=== PATIENT | male | born 1985 | race Caucasian/White ===

== ENCOUNTER → 2018-06-04 | Outpatient (CLI) | payer OTHER ==
--- NOTE | 2018-06-04 10:54 | EST ---
EXERCISE STRESS DATE OF SERVICE: 06/04/2018 AGE: 33 SEX: Male HT: 68" WT: 215 pounds PROTOCOL: Cardiolite Giovanni STAGE: II DURATION OF EXERCISE: 8 minutes HEART RATE REST: 81 BLOOD PRESSURE REST: 142/62 MAXIMUM HEART RATE ACHIEVED: 166 MAXIMUM BLOOD PRESSURE: 185/94 85% MPHR: 160 100% MPHR: 188 METS: 9.7 INDICATIONS: Chest pain. CLINICAL INFORMATION: STRESS DATA: Pretesting physical examination showed a heart rate of 81, pressure is 142/62 mmHg. Baseline EKG showed sinus mechanism. The patient exercised on the treadmill according to Giovanni protocol for a total of 8 minutes and achieved 9.7 METs. Max heart rate was 166, which is about 88% of maximum predicted heart rate. Maximum blood pressure was 142, 1 study was 185/44 mmHg. Clinically the patient did not have any symptoms of chest pain or discomfort during the testing or in recovery and the EKG did not show any significant ST or T-wave abnormalities concerning for ischemia. CONCLUSIONS: 1. Excellent exercise tolerance. 2. Normal EKG in response to exercise. 3. Please follow up on the Cardiolite portion on a separate report from radiology department. MMODL / IJN: [id number] /
--- NOTE | 2018-06-04 12:33 | NM ---
EXAMINATION TYPE: NM stress cardiolite complete DATE OF EXAM: 06/04/2018 COMPARISON: NONE HISTORY: Hypertension, chest pain TECHNIQUE: After the intravenous administration of 10.45 mCi Tc 99m Sestamibi - Rest images obtained 45 minutes post injection. The patient exercised using a NESS protocol and 1 minute prior to peak exercise was injected with 26.2 mCi Tc 99m Sestamibi - Stress images obtained 15 minutes post inject ion. FINDINGS: Targeted heart rate was achieved during performance of the study. Review of stress and rest SPECT mikey ges demonstrates no distinct perfusion abnormality. Gated analysis shows normal wall motion with an estimated left ventricular ejection fraction of 56 %. IMPRESSION: No scintigraphic evidence for reversible ischemia
== END | disposition home or self-care (01) ==
LOC: RADNMMAIN 07:46
PROVIDERS: ATTEND Family Medicine
DX: I10 Essential (primary) hypertension (principal); R07.9 Chest pain, unspecified
CPT/HCPCS: 93017; 78452; A9500

== ENCOUNTER 2018-08-09 17:00 | Emergency (ER) | payer OTHER ==
[2018-08-09 17:12] VITALS: BP 143/75; PULSE 114; RESP 20; TEMP 98.2
[2018-08-09] MEDS ORDERED: ORPHENADRINE 30 MG/ML 2 ML VIAL IM STA (18:10)
[2018-08-09] MEDS ORDERED: KETOROLAC 30 MG/ML 1 ML VIAL IM STA (18:10)
[2018-08-09] MEDS ORDERED: MORPHINE SULFATE 4 MG/ML SYRINGE IM STA (18:10)
[2018-08-09] MEDS ORDERED: ACET/COD 300 MG/30 MG STARTER PACK 6 TAB BTL PO STA (19:19)
--- NOTE | 2018-08-09 19:19 | ED ---
Back Pain HPI - General Chief Complaint: Back Pain/Injury Stated Complaint: BACK PAIN Time Seen by Provider: 08/09/18 17:29 Source: patient Limitations: no limitations - History of Present Illness Initial Comments: 33-year-old male patient presents the emergency department today for evaluation of pain to the right low back. Patient states that he was bending over to grab something out of his car when he had sudden onset of pain to the right low back that radiated down the posterior right leg to his foot. Patient states that this occurred around 1:30 this afternoon. Patient states that the pain seems to be worsening. He denies taking anything for pain or discomfort. He denies any numbness or tingling to the extremities. Denies any saddle anesthesia or loss of bowel or bladder control. Patient states he has had low back pain in the past but never has had this radiating pain. Patient denies any headache, neck pain, chest pain, shortness of breath, dizziness, weakness, abdominal pain , nausea, vomiting, or difficulties with bowel movements or urination. - Related Data Previous Rx's Medication Instructions Recorded Cyclobenzaprine [Flexeril] 10 mg PO TID #15 tab 08/09/18 Ibuprofen [Motrin] 600 mg PO Q8HR PRN #30 tab 08/09/18 predniSONE 50 mg PO DAILY #5 tablet 08/09/18 Allergies Allergy/AdvReac Type Severity Reaction Status Date / Time No Known Allergies Allergy Verified 08/09/18 17:12 Review of Systems ROS Statement: Those systems with pertinent positive or pertinent negative responses have been documented in the HPI. ROS Other: All systems not noted in ROS Statement are negative. Past Medical History Past Medical History: Hypertension History of Any Multi-Drug Resistant Organisms: None Reported Past Surgical History: No Surgical Hx Reported Past Psychological History: No Psychological Hx Reported Smoking Status: Never smoker Past Alcohol Use History: Occasional Past Drug Use History: None Reported General Exam Limitations: no limitations General appearance: alert, in no apparent distress, other (This is a well- developed, well-nourished adult male patient in no acute distress. Vital signs upon presentation are temperature 98.2F, pulse 114, respirations 20, blood pressure 143/75, pulse ox 100% on room air.) Eye exam: Present: normal appearance, PERRL, EOMI. Absent: scleral icterus, conjunctival injection, periorbital swelling ENT exam: Present: normal exam, normal oropharynx, mucous membranes moist Respiratory exam: Present: normal lung sounds bilaterally. Absent: respiratory distress, wheezes, rales, rhonchi, stridor Cardiovascular Exam: Present: regular rate, normal rhythm, normal heart sounds. Absent: systolic murmur, diastolic murmur, rubs, gallop, clicks GI/Abdominal exam: Present: soft, normal bowel sounds. Absent: distended, tenderness, guarding, rebound, rigid Extremities exam: Present: normal inspection, full ROM, normal capillary refill , other (Skin to the lower extremities is pink, warm, and dry. Cap refills less than 3 seconds. Pedal and posttibial pulses are 2+ and equal bilaterally.) . Absent: tenderness, pedal edema, joint swelling, calf tenderness Back exam: Present: normal inspection, paraspinal tenderness (Right lumbar paraspinal tenderness). Absent: vertebral tenderness Neurological exam: Present: alert, oriented X3, CN II-XII intact, other ( Strength to the lower extremities is 5/5.) Psychiatric exam: Present: normal affect, normal mood Skin exam: Present: warm, dry, intact, normal color. Absent: rash Course Vital Signs 08/09/18 17:09 Temperature 98.2 F Pulse Rate 114 H Respiratory 20 Rate Blood Pressure 143/75 O2 Sat by Pulse 100 Oximetry Medical Decision Making - Medical Decision Making 33-year-old male patient presented to the emergency department today for evaluation of increased low back pain with radiation down the right leg. Physical examination was unremarkable. Patient was neurovascularly intact. Strength in lower extremities was 5/5. Patient's symptoms consistent with sciatic back pain. I did give intramuscular anti-inflammatory, pain medicine, and muscle relaxer in the department. Upon reevaluation patient symptoms have improved somewhat. He is able to ambulate. We will treat patient's pain with anti-inflammatory, steroids, and muscle relaxer. He is instructed to follow-up with his primary care physician for possible referral to orthopedics. Return parameters were discussed in detail. He verbalizes understanding and agrees with this plan. Disposition Clinical Impression: Acute low back pain, Sciatica Disposition: HOME SELF-CARE Condition: Good Instructions: Sciatica (ED), Acute Low Back Pain (ED), Lower Back Exercises (ED ) Additional Instructions: Apply ice to the low back for the first 24 hours and switch to warm moist he application. Apply this 20 minutes at a time at least 4 times daily. Take medications as directed. Perform gentle range of motion exercises once medication taken. Follow-up with your primary care physician for recheck and for possible referral to orthopedics if necessary. Return to the emergency department immediately for any new, worsening, or concerning symptoms. Prescriptions: Cyclobenzaprine [Flexeril] 10 mg PO TID #15 tab Ibuprofen [Motrin] 600 mg PO Q8HR PRN #30 tab PRN Reason: Pain predniSONE 50 mg PO DAILY #5 tablet Is patient prescribed a controlled substance at d/c from ED?: No Referrals: Shahbaz Colbert Jr, [Primary Care Provider] - 1-2 days Time of Disposition: 19:18
== END 2018-08-09 19:42 | disposition home or self-care (01) ==
LOC: EC 17:00
DX: M54.40 Lumbago with sciatica, unspecified side (principal)
CPT/HCPCS: 99283; 96372 ×3; J2270; J2360; J1885

== ENCOUNTER → 2018-09-07 | Outpatient (CLI) | payer OTHER ==
[2018-09-07 17:28] LABS: ALT 106 U/L (10-49); AST 65 U/L (14-35); Alkaline Phosphatase 59 U/L (41-126); Bilirubin, Conjugated <0.20 mg/dL (0.20-0.40); Cholesterol 160 mg/dL (0-200); Globulin 2.3 g/dL (2.1-3.7); Total Bilirubin 0.3 mg/dL (0.2-1.2); Total Protein 6.9 g/dL (6.2-8.2)
== END | disposition home or self-care (01) ==
LOC: LABWHC1 08:58
PROVIDERS: ATTEND Internal Medicine Cardiovascular Disease
DX: I10 Essential (primary) hypertension (principal); R00.0 Tachycardia, unspecified; R07.2 Precordial pain; R06.02 Shortness of breath; E66.09 Other obesity due to excess calories; Z68.33 Body mass index [BMI] 33.0-33.9, adult
CPT/HCPCS: 36415; 80061; 80076

== ENCOUNTER → 2018-09-07 | Outpatient (CLI) | payer OTHER ==
--- NOTE | 2018-09-07 14:00 | CT ---
EXAMINATION TYPE: CT abdomen pelvis wo con DATE OF EXAM: 09/07/2018 COMPARISON: None HISTORY: Hematuria CT DLP: 892.10 mGycm Automated exposure control for dose reduction was used. TECHNIQUE: Helical acquisition of images was performed from the lung bases through the pelvis. FINDINGS: LUNG BASES: No significant abnormality is appreciated. LIVER/GB: Hepatic parenchyma is diffusely hypoattenuated in comparison to that of the spleen, most co mmonly seen in hepatic steatosis. This finding limits evaluation for hepatic masses. No gross evidenc e of hepatic mass is seen. No intrahepatic biliary ductal dilatation. No cholelithiasis PANCREAS: No significant abnormality is seen. SPLEEN: No significant abnormality is seen. No splenomegaly. ADRENALS: No significant abnormality is seen. No nodularity or thickening. KIDNEYS: No hydronephrosis or nephrolithiasis is seen. Kidneys appear symmetric. FREE AIR: No free air is visualized REPRODUCTIVE ORGANS: No significant abnormality is seen URINARY BLADDER: No significant abnormality is seen. ADENOPATHY: Within the limitations of lack of intravenous contrast there are no greater than 1 cm sh ort axis lymph node in the abdomen or pelvis. OSSEOUS STRUCTURES: No significant abnormality is seen. BOWEL: Few scattered descending and sigmoid colonic diverticula are seen without pericolonic fat str anding. Appendix is air-filled and within normal limits of size. No dilated large or small bowel. OTHER: Small fat filled periumbilical hernia is present IMPRESSION: 1. NO HYDRONEPHROSIS OR NEPHROLITHIASIS. IF THERE IS FURTHER CLINICAL CONCERN CT UROGRAM COULD BE PER FORMED. 2. HEPATIC STEATOSIS APPEARING MILD IN DEGREE. 3. FEW COLONIC DIVERTICULA WITHOUT EVIDENCE OF ACUTE DIVERTICULITIS.
== END | disposition home or self-care (01) ==
LOC: RADCTMAIN 08:21
PROVIDERS: ATTEND Family Medicine
DX: R31.9 Hematuria, unspecified (principal)
CPT/HCPCS: 74176

== ENCOUNTER → 2019-08-24 | Outpatient (CLI) | payer OTHER ==
--- NOTE | 2019-08-24 13:37 | CT ---
EXAMINATION TYPE: CT sinus wo con DATE OF EXAM: 08/24/2019 COMPARISON: None HISTORY: sinusitis CT DLP: 605.9 mGycm CONTRAST: 0 mL of Isovue 300 Technique: The paranasal sinuses are examined in the axial plane at 2 mm thick sections. Reconstruct ed images in the coronal plane were obtained. Findings: There is dental amalgam scatter artifact The maxillary sinuses are clear. The ethmoid air cells are clear. The sphenoid sinuses are clear. The frontal sinuses are clear. The septum is evaluated. There is septal deviation to the left. The ostiomeatal units are patent. IMPRESSIONS: 1. Left septal deviation
== END | disposition home or self-care (01) ==
LOC: RADCTMAIN 11:17
PROVIDERS: ATTEND Otolaryngology
DX: J34.2 Deviated nasal septum (principal); J32.9 Chronic sinusitis, unspecified
CPT/HCPCS: 70486

== ENCOUNTER → 2019-09-13 | Outpatient (CLI) | payer OTHER ==
[~2019-09-13] MED LIST: SODIUM CHLORIDE 0.9% 500 ML 500 ML in EMPTY BAG 1 BAG IV PRN
[2019-09-13 09:47] VITALS: TEMP 98.5
[2019-09-13 10:10] LABS: HCT 48.3 % (39.0-53.0); HGB 16.6 gm/dL (13.0-17.5); MCH 34.4 pg (25.0-35.0); MCHC 34.4 g/dL (31.0-37.0); Mean Platelet Volume 7.1; Platelet Count 260 k/uL (150-450); RBC 4.83 m/uL (4.30-5.90); RDW 12.3 % (11.5-15.5); WBC 7.1 k/uL (3.8-10.6)
[2019-09-13 10:44] VITALS: BP 108/57; PULSE 87; RESP 16
[2019-09-14 21:50] LABS: Eosinophils # (M) 0.07 k/uL (0-0.7); Lymphocytes # (M) 1.14 k/uL (1.0-4.8); Monocytes # (M) 1.07 k/uL (0-1.0); Neutrophils # (M) 4.83 k/uL (1.3-7.7); Neutrophils % (M) 68 %; Nucleated Red Blood Cells 0 /100 WBC (0-0); Total Cells Counted 100
== END | disposition home or self-care (01) ==
LOC: PROCWHC3 08:58
PROVIDERS: ATTEND Family Medicine
DX: D45 Polycythemia vera (principal)
CPT/HCPCS: 36415; 85027; 99195

== ENCOUNTER 2019-12-28 09:45 | Inpatient (IN) | payer OTHER ==
[2019-12-28] MEDS ORDERED: MORPHINE SULFATE 4 MG/ML SYRINGE IV STA (10:08)
[2019-12-28] MEDS ORDERED: ASPIRIN 81 MG PO STA (10:08)
[2019-12-28] MEDS ORDERED: NITROGLYCERIN SL TABS 0.4 MG TAB SUBLINGUAL STA (10:08)
[2019-12-28] MEDS ORDERED: LABETALOL 5 MG/ML VIAL MDV IVP STA ×2 (10:19)
--- NOTE | 2019-12-28 10:20 | ED ---
Chest Pain HPI - General Chief Complaint: Chest Pain Stated Complaint: Chest pain Time Seen by Provider: 12/28/19 10:08 Source: patient Mode of arrival: wheelchair Limitations: no limitations - History of Present Illness Initial Comments: 33-year-old male presented for chief complaint of chest pain, patient states his chest pain for the past 2 days it comes and goes he states is sharp in nature. Patient states that it is in the center the chest near the bottom. He states it stopped with abdominal pain. Patient states he has had some nausea and episodes of vomiting. Patient denies any shortness of breath. He denies leg swelling. Patient denies history of hyperlipidemia, he states he previously was diagnosed with hypertension however has not been taking his medications. Patient states he did eat a marijuana brownie over the weekend denies any other drug use denies cocaine use. Patient denies IV drug use. Patient denies any hemoptysis, leg swelling, neck pain, jaw pain. Patient denies cough, URI symptoms, fevers. The pain resumed again this morning he thought he best he presents emergency department for further evaluation. Patient states the pain is decreasing upon history taking in comparison with this AM. Denies any ripping tearing back pain or history of aneurysm. Remaining review of system negative. Patient is a smoker. Denies history of ACS. Denies family history of CAD. - Related Data Home Medications Medication Instructions Recorded Confirmed Losartan [Cozaar] 25 mg PO DAILY 09/13/19 12/28/19 Aspirin EC [Ecotrin Low Dose] 81 mg PO DAILY 12/28/19 12/28/19 Potassium Citrate [Urocit-K] 5 meq PO DAILY 12/28/19 12/28/19 Allergies Allergy/AdvReac Type Severity Reaction Status Date / Time No Known Allergies Allergy Verified 12/28/19 11:05 Review of Systems ROS Statement: Those systems with pertinent positive or pertinent negative responses have been documented in the HPI. ROS Other: All systems not noted in ROS Statement are negative. EKG Findings - EKG Comments: EKG Findings:: Ventricular rate 114 bpm, NV interval 116 ms, QRS confucianism 74 ms, QT/QTC 338/465 ms. This is a sinus tachycardia. There is no ST elevation or depression noted. Past Medical History Past Medical History: Hypertension History of Any Multi-Drug Resistant Organisms: None Reported Past Surgical History: No Surgical Hx Reported Past Psychological History: No Psychological Hx Reported Smoking Status: Never smoker - Past Family History Mother Family Medical History: Hypertension grandfather Additional Family Medical History / Comment(s): lung cancer General Exam - General Exam Comments Initial Comments: General: The patient is awake and alert, in no distress Eye: +3 mm pupils are equal, round and reactive to light, extra-ocular movements are intact. No nystagmus. There is normal conjunctiva bilaterally. No signs of icterus. Ears, nose, mouth and throat: There are moist mucous membranes and no oral lesions. Neck: The neck is supple, there is no tenderness or JVD. Cardiovascular: There is a regular rate and rhythm. No murmur, rub or gallop is appreciated. Respiratory: Lungs are clear to auscultation, respirations are non-labored, breath sounds are equal. No wheezes, stridor, rales, or rhonchi. Gastrointestinal: Soft, non-distended, mild tenderness to palation of the epigastric portion of the abdomen without masses or organomegaly noted. There is no rebound or guarding present. Musculoskeletal: Normal ROM, no tenderness. Strength 5/5. Sensation intact. Radial and DP pulses equal bilaterally 2+. Neurological: A&O x 3. CN II-XII intact grossly, There are no obvious motor or sensory deficits. Coordination appears grossly intact. Speech is normal. bilateral hand tremors. Skin: Skin is warm and dry and no rashes or lesions are noted. Psychiatric: Cooperative, appropriate mood & affect, normal judgment. Limitations: no limitations Course Vital Signs 12/28/19 12/28/19 12/28/19 09:49 10:14 10:32 Temperature 98.2 F Pulse Rate 132 H 126 H Pulse Rate [ 125 H Tree Faller ] Respiratory 20 18 Rate Blood Pressure 157/130 O2 Sat by Pulse 98 97 Oximetry 12/28/19 12/28/19 12/28/19 11:00 11:25 11:33 Temperature Pulse Rate 120 H 107 H Pulse Rate [ Tree Faller ] Respiratory 18 18 Rate Blood Pressure 155/110 140/117 127/92 O2 Sat by Pulse 97 97 Oximetry 12/28/19 12/28/19 12/28/19 14:21 15:36 16:25 Temperature 98.4 F Pulse Rate 89 98 Pulse Rate [ Tree Faller ] Respiratory 18 18 18 Rate Blood Pressure 143/105 141/96 136/79 O2 Sat by Pulse 100 100 Oximetry Chest Pain MDM - MDM 34-year-old male presenting for chest pain appears to be in the lower substernal area/epigastric region. Patient was found to be in acute liver failure with acute elevation of AST ALT as well as INR. Patient had mild elevation of ammonia. Patient hepatitis A negative remaining Test panel pending. Patient was found to have multiple substance abuse he admits to ETOH abuse. No rectal bleeding. Patient was placed on withdrawal protocol. Patient's chest pain resolved in the emergency department. Patient had been using cocaine although he initially denied this. Labetolol was not given however it was initially ordered secondary to suspicion for drug use. Patient initial troponin (-) Patient has no current symptoms. Nodule near pancreas discussed. Discussed case with Dr. Hall who is agreeable to admission--GI on consult. Patient agreeable to admission. Disposition Clinical Impression: Liver failure, Drug abuse, Chest pain, Pancreatic abnormality, Elevated INR, Hypomagnesemia Disposition: ADMITTED IP TO THIS HOSP Condition: Serious Is patient prescribed a controlled substance at d/c from ED?: No Time of Disposition: 14:09 Decision to Admit Reason: Admit from EC Decision Date: 12/28/19 Decision Time: 14:09
[2019-12-28 10:33] LABS: Basophils % (A) 0 %; Eosinophils # (A) 0.2 k/uL (0-0.7); Eosinophils % (A) 3 %; HCT 53.3 % (39.0-53.0); HGB 17.5 gm/dL (13.0-17.5); Lymphocytes # (A) 0.8 k/uL (1.0-4.8); Lymphocytes % (A) 10 %; MCH 33.9 pg (25.0-35.0); MCHC 32.8 g/dL (31.0-37.0); MCV 103.2 fL (80.0-100.0); Macrocytosis Slight; Mean Platelet Volume 10.2; Monocytes # (A) 0.5 k/uL (0-1.0); Monocytes % (A) 6 %; Neutrophils # (A) 6.7 k/uL (1.3-7.7); Neutrophils % (A) 80 %; Platelet Count 133 k/uL (150-450); RBC 5.16 m/uL (4.30-5.90); RDW 12.4 % (11.5-15.5); WBC 8.4 k/uL (3.8-10.6)
[2019-12-28] MEDS ORDERED: LORazepam 2 MG/ML INJ IV STA ×2 (10:33→18:34)
[2019-12-28 10:43] LABS: ALT 72 U/L (4-49); AST 297 U/L (17-59); African American GFR (CKD) >90 (>60 ml/min/1.73 sqM); Albumin 4.8 g/dL (3.5-5.0); Alkaline Phosphatase 190 U/L (38-126); Anion Gap 16 mmol/L; Blood Urea Nitrogen 9 mg/dL (9-20); Calcium 9.9 mg/dL (8.4-10.2); Carbon Dioxide 22 mmol/L (22-30); Chloride 100 mmol/L (98-107); Glucose 123 mg/dL (74-99); Magnesium 1.4 mg/dL (1.6-2.3); Non-African American GFR(CKD) >90 (>60 ml/min/1.73 sqM); Sodium 138 mmol/L (137-145); Total Bilirubin 3.9 mg/dL (0.2-1.3); Total Protein 9.6 g/dL (6.3-8.2)
[2019-12-28 10:44] LABS: Potassium 4.3 mmol/L (3.5-5.1)
[2019-12-28 10:56] LABS: INR 1.9 (<1.2); Partial Thromboplastin Time 22.5 sec (22.0-30.0); Prothrombin Time 18.2 sec (9.0-12.0)
[2019-12-28] MEDS ORDERED: MAGNESIUM SULFATE-D5W PMX 1 GM in DEXTROSE/WATER 1 100ML.BAG IVPB ONE (10:58)
--- NOTE | 2019-12-28 11:05 | XR ---
EXAMINATION TYPE: XR chest 2V DATE OF EXAM: 12/28/2019 COMPARISON: NONE TECHNIQUE: PA and lateral views submitted. HISTORY: Chest pain FINDINGS: The lungs are clear and there is no pneumothorax, pleural effusion, or focal pneumonia. Heart size normal. No overt failure. IMPRESSION: 1. No acute process.
[2019-12-28] MEDS ORDERED: LORazepam 2 MG/ML INJ IV PRN ×2 (11:13)
[2019-12-28] MEDS ORDERED: THIAMINE 100 MG/ML 2 ML VIAL IM STA (11:13)
--- NOTE | 2019-12-28 11:31 | CT ---
EXAMINATION TYPE: CT angio thor/abd pel aorta DATE OF EXAM: 12/28/2019 COMPARISON: CT abdomen and pelvis September 07, 2018 HISTORY: chest pain, hypertension, 42 pound wt loss in [address] DLP: 1454.1 mGycm. Automated Exposure Control for Dose Reduction was Utilized. CONTRAST: CTA scan of the thorax, abdomen and pelvis is performed without oral and without and with IV Contrast , patient injected with 100 mL of Isovue 370. Dissection protocol with 3-D reconstructive images crea armida on an independent workstation and reviewed. FINDINGS: Vascular: Central pulmonary arteries well opacified. Normal 3 vessel origin from the aortic arch. No rmal origin celiac artery and SMA, bilateral single renal arteries and PEREZ. Patent iliac vessels bila terally. Patent femoral vessels in the bilateral region. No significant plaque or stenosis. No aneury sm. No linear hypodensity to suggest dissection. Proximal Coronary vessels grossly unremarkable. Phoebe nant right coronary vessel seen filling PDA. LUNGS: The lungs are grossly clear, there is no concerning parenchymal mass or nodule identified. T here is no pleural effusion or pneumothorax seen. The tracheobronchial tree is patent. MEDIASTINUM: There are no greater than 1 cm hilar or mediastinal lymph nodes. Few prominent but subce ntimeter right paratracheal lymph nodes image 25. No pericardial effusion is seen. LIVER/GB: Liver markedly hypodense consistent with diffuse fatty infiltration. Liver size upper limit s of normal with prominent right hepatic lobe. PANCREAS: No significant abnormality is seen. SPLEEN: Roughly 1 cm splenule near pancreatic tail axial image 104 ADRENALS: No significant abnormality is seen. KIDNEYS: No significant abnormality is seen. BOWEL: Stomach poorly distended and thus suboptimally evaluated. No suspicious small or large bowel d ilatation. GENITAL ORGANS: No gross abnormality seen. LYMPH NODES: No greater than 1cm abdominal or pelvic lymph nodes are appreciated. OSSEOUS STRUCTURES: No significant abnormality is seen. OTHER: No significant additional abnormality is seen. IMPRESSION: No aortic aneurysm or dissection. No suspicious mass or adenopathy. No significant renal artery plaque or stenosis. Diffuse fatty infiltration of liver redemonstrated otherwise unremarkable study.
[2019-12-28 11:38] LABS: Appearance,Urine Clear (Clear); Bacteria,Urine Rare /hpf; Bilirubin,Urine 1+ (Negative); Blood,Urine Trace (Negative); Color,Urine Light Brown; Glucose,Urine (UA) Negative (Negative); Ketones,Urine Trace (Negative); Leukocyte Esterase,Urine Negative (Negative); Mucus,Urine Occasional /hpf; Nitrite,Urine Negative (Negative); PH, Urine 8.5 (5.0-8.0); Protein,Urine 2+ (Negative); RBC,Urine 9 /hpf (0-5); Squamous Epithelial Cell,Urine <1 /hpf (0-4); Urobilinogen,Urine >12.0 mg/dL (<2.0); WBC,Urine 2 /hpf (0-5)
[2019-12-28 11:53] LABS: Amphetamine Screen,Urine Detected (NotDetected); Benzodiazepines Screen,Urine Detected (NotDetected); Cocaine Screen,Urine Detected (NotDetected); Methadone Screen, Urine Not Detected (NotDetected); Opiate Screen,Urine Detected (NotDetected); Phencyclidine Screen,Urine Not Detected (NotDetected); Tricyclic Antidepressant,Urine Not Detected (NotDetected); Urn Cannabinoid Scrn Detected (NotDetected)
[2019-12-28 11:54] LABS: Barbiturate Screen,Urine Not Detected (NotDetected); Oxycodone Screen, Urine Not Detected (NotDetected)
[2019-12-28 12:08] LABS: Specific Gravity,Urine >1.050 (1.001-1.035)
--- NOTE | 2019-12-28 12:35 | US ---
EXAMINATION TYPE: US abdomen limited DATE OF EXAM: 12/28/2019 COMPARISON: NONE CLINICAL HISTORY: epigastric pain. Pain EXAM MEASUREMENTS: Liver Length: 21.2 cm Gallbladder Wall: .3 cm CBD: 0.3 cm Right Kidney: 1.2 x 4.1 x 4.8 cm Pancreas: Obscured by bowel gas Liver: Increased attenuation hepatomegally 21 cm Gallbladder: wnl Evidence for sonographic Tejada's sign: No CBD: wnl Right Kidney: wnl IMPRESSION: 1. Hepatomegaly correlate for hepatitis, hepatic steatosis or diffuse hepatocellular disease.
[2019-12-28 13:12] LABS: Acetaminophen <10.0 ug/mL; Alcohol <10 mg/dL
[2019-12-28 13:48] LABS: Hepatitis A Antibody IgM NEGATIVE
[2019-12-28] MEDS ORDERED: NALOXONE 0.4 MG/ML 1 ML VIAL IV PRN ×2 (14:10→17:17)
[2019-12-28] MEDS ORDERED: SODIUM CHLORIDE 0.9% 1,000 ML IV SCH (14:15)
[2019-12-28] MEDS ORDERED: hydrALAZINE HCL 20 MG/ML 1 ML VIAL IVP STA (14:48)
[2019-12-28] MEDS ORDERED: ONDANSETRON 4 MG/2 ML VIAL IVP PRN (17:17)
[2019-12-28] MEDS ORDERED: MELATONIN 3 MG TABLET PO PRN (17:17)
[2019-12-28] MEDS ORDERED: traMADol 50 MG TAB PO PRN (17:17)
[2019-12-28] MEDS ORDERED: MORPHINE SULFATE 2 MG/ML SYRINGE IV PRN (17:17)
--- NOTE | 2019-12-28 17:35 | P.HPIM ---
History of Present Illness H&P Date: 12/28/19 Chief Complaint: chest pain Patient is a 34 yo CM with a hx of He reports chest pain on and off for several months. Saw a newspaper clipper 1 year ago, had a stress test was negative. Last night he was having pain all evening it was sub Xiphoid with radiation to left and right side of the chest at times. Comes and Goes. Occurs at anytime throughout the day but most commonly when laying down at night. Last multiple hours at a time. Feels like heart burn at times but medications not helping. No shrotness of breath. Tired more often then prior. No numbness in the arms or the jaw. Last episode of vomiting was 1 weeks ago, gagging and puking. intermittent dizziness, + diaphoretic, intermittent palpitations check pulse at home and can be upwards of 120 beats per minutes. Feels hungry and eats small amount of food and then feels full, he does report that he has been having diarrhea X 3 days. Feels like he needs to chew for a angel time but nothing gets stuck when actually swallowing. Had TCH candy and it increased appetitie. Lost 42 lbs in 6 months. Urine yellow to orange. No acholic stools. He reports intermittent blood in stools and coffee ground emesis. Stopped taking lopressor, losartan, and a water pill. 1 tattoo obtained in a home. No camping, no swimming, no recent travel, no recent visitors from over seas. Increased stress at home. He was seeing Dr. Colbert but is planning on changing physicians. 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 No significant issues noted on an osteopathic structural exam other than those noted in the History and Physical/Consult. Vitals: Vital Signs Temp Pulse Pulse Resp BP Pulse Ox 12/28/19 15:36 18 141/96 12/28/19 14:21 89 18 143/105 100 12/28/19 11:33 127/92 12/28/19 11:25 107 H 18 140/117 97 12/28/19 11:00 120 H 18 155/110 97 12/28/19 10:32 126 H 18 97 12/28/19 10:14 125 H 12/28/19 09:49 98.2 F 132 H 20 157/130 98 Intake and Output 12/28/19 12/28/19 12/28/19 06:59 14:59 22:59 Other: Weight 81.647 kg General: ill appearing, no distress, appears at stated age, normal weight Derm: Multiple tattoos, no unusual rashes/lesions no unusual ecchymoses, warm, dry Head: atraumatic, normocephalic, symmetric Eyes: EOMI, no lid lag, anicteric sclera, pupils equal round reactive to light ENT: Nose and ears atraumatic, no thrush, no pharyngeal erythema Neck: No thyromegaly, no cervical lymphadenopathy, trachea midline, supple Mouth: no lip lesion, mucus membranes moist Cardiovascular: S1S2 reg, no murmur, positive posterior tibial pulse bilateral, no edema, capillary refill less than 2 seconds Lungs: CTA bilateral, no rhonchi, no rales , no accessory muscle use Abdominal: soft, + tender to palpation epigastric, no guarding, no appreciable organomegaly, normal bowel sounds Ext: no gross muscle atrophy, muscle strength 5 out of 5 in all 4 extremities grossly, no contractures, + asteresix Neuro: CN II-XI grossly intact, light touch intact all 4 extremities, finger to nose within normal limits, Psych: Alert, oriented, appropriate affect Results CBC & Chem 7: 12/28/19 10:05 12/28/19 10:05 Labs: Abnormal Lab Results - Last 24 Hours (Table) 12/28/19 12/28/19 12/28/19 Range/Units 10:05 10:05 10:05 Hct 53.3 H (39.0-53.0) % MCV 103.2 H (80.0-100.0) fL Plt Count 133 L (150-450) k/uL Lymphocytes # 0.8 L (1.0-4.8) k/uL PT 18.2 H (9.0-12.0) sec INR 1.9 H (<1.2) Glucose 123 H (74-99) mg/dL Magnesium 1.4 L (1.6-2.3) mg/dL Total Bilirubin 3.9 H (0.2-1.3) mg/dL AST 297 H (17-59) U/L ALT 72 H (4-49) U/L Alkaline Phosphatase 190 H (38-126) U/L Ammonia (<30) umol/L Total Protein 9.6 H (6.3-8.2) g/dL Urine pH (5.0-8.0) Ur Specific [place] (1.001-1.035) Urine Protein (Negative) Urine Ketones (Negative) Urine Blood (Negative) Urine Bilirubin (Negative) Urine RBC (0-5) /hpf Urine Bacteria (None) /hpf Urine Mucus (None) /hpf Urine Opiates Screen (NotDetected) Ur Amphetamines Screen (NotDetected) U Methamphetamines Scrn (NotDetected) U Benzodiazepines Scrn (NotDetected) Urine Cocaine Screen (NotDetected) U Marijuana (THC) Screen (NotDetected) 12/28/19 12/28/19 12/28/19 Range/Units 11:15 11:15 15:02 Hct (39.0-53.0) % MCV (80.0-100.0) fL Plt Count (150-450) k/uL Lymphocytes # (1.0-4.8) k/uL PT (9.0-12.0) sec INR (<1.2) Glucose (74-99) mg/dL Magnesium (1.6-2.3) mg/dL Total Bilirubin (0.2-1.3) mg/dL AST (17-59) U/L ALT (4-49) U/L Alkaline Phosphatase (38-126) U/L Ammonia 32 H (<30) umol/L Total Protein (6.3-8.2) g/dL Urine pH 8.5 H (5.0-8.0) Ur Specific [place] >1.050 H (1.001-1.035) Urine Protein 2+ H (Negative) Urine Ketones Trace H (Negative) Urine Blood Trace H (Negative) Urine Bilirubin 1+ H (Negative) Urine RBC 9 H (0-5) /hpf Urine Bacteria Rare H (None) /hpf Urine Mucus Occasional H (None) /hpf Urine Opiates Screen Detected H (NotDetected) Ur Amphetamines Screen Detected H (NotDetected) U Methamphetamines Scrn Detected H (NotDetected) U Benzodiazepines Scrn Detected H (NotDetected) Urine Cocaine Screen Detected H (NotDetected) U Marijuana (THC) Screen Detected H (NotDetected) Chest x-ray: report reviewed Thrombosis Risk Factor Assmnt - DVT/VTE Prophylaxis DVT/VTE Prophylaxis: Low risk, early ambulation encouraged Assessment and Plan Assessment: Epigastric pain - cancel cardio consult - check echo to rule out cardiomyopathy - Heart score: 1 - Trend troponins - tele - PPI BID - GI consult, consider EGD to rule out PUD vs esophagela dysfunction - ASA Acute transaminitis - increased ETOH use - Await acute hep panel - add ammonia - Consult GI - Check ANETTE, mitochondrial, AFP, Ferritin (recently worked up for polycythemia and was told he did not have this), ceruloplasmin, anti liver/kidney Coagulopathy with thrombocytopenia and macrocytosis - suspect related to underlying liver disease - repeat INR in AM - follow CBC HTN urgency - s/p labetalol in the ED - resume metoprolol he took himself off this several months ago - follow JERRI Hypomagnesemia - replace and recheck Alcohol misuse - CIWA - thiamine - folic acid Multiple + UDS - will ask him about further in AM when family not present. The patient is admitted with an anticipated greater than 2 midnight stay for evaluation of [transaminitis]. Surrogate decision-maker: [mother] CODE STATUS:full DVT prophylaxis: scds Discussed with: patient, nursing, ED physician Anticipated discharge date: 2-[address]: home A total of 70 minutes was spent on the care of this complex patient more than 50% of the time was spent in counseling and care coordination.
[2019-12-28] MEDS: MAGNESIUM SULFATE-D5W PMX 1 GM in DEXTROSE/WATER 1 100ML.BAG IVPB SCH ×2 (18:46→22:36)
[2019-12-28] MEDS: METOPROLOL TARTRATE 12.5 MG TAB PO SCH (18:46)
[2019-12-28 19:57] LABS: Hepatitis B Core IgM Non-Reactive (Non-Reactive); Hepatitis B Surface Antigen Non-Reactive (Non-Reactive); Hepatitis C IgG Antibody Non-Reactive (Non-Reactive)
[2019-12-29] MEDS: LORazepam 2 MG/ML INJ IV PRN ×2 (00:30→22:57)
[2019-12-29] MEDS: PANTOPRAZOLE 40 MG TABLET PO SCH ×2 (06:27→17:50)
[2019-12-29 06:46] LABS: HCT 43.6 % (39.0-53.0); MCH 34.2 pg (25.0-35.0); MCHC 32.5 g/dL (31.0-37.0); MCV 105.5 fL (80.0-100.0); Macrocytosis Slight; Platelet Count 122 k/uL (150-450); RBC 4.13 m/uL (4.30-5.90); RDW 12.3 % (11.5-15.5); WBC 6.4 k/uL (3.8-10.6)
[2019-12-29 06:52] LABS: HGB 14.1 gm/dL (13.0-17.5)
[2019-12-29 06:57] LABS: INR 1.2 (<1.2)
[2019-12-29 06:58] LABS: Prothrombin Time 12.2 sec (9.0-12.0)
[2019-12-29 07:10] LABS: ALT 61 U/L (4-49); AST 232 U/L (17-59); African American GFR (CKD) >90 (>60 ml/min/1.73 sqM); Albumin 3.6 g/dL (3.5-5.0); Alkaline Phosphatase 126 U/L (38-126); Anion Gap 9 mmol/L; Blood Urea Nitrogen 9 mg/dL (9-20); Calcium 8.3 mg/dL (8.4-10.2); Carbon Dioxide 27 mmol/L (22-30); Chloride 100 mmol/L (98-107); Cholesterol 151 mg/dL (<200); Glucose 83 mg/dL (74-99); HDL Cholesterol 31 mg/dL (40-60); LDL Cholesterol,Calculated 101 mg/dL (0-99); Magnesium 2.1 mg/dL (1.6-2.3); Non-African American GFR(CKD) >90 (>60 ml/min/1.73 sqM); Sodium 136 mmol/L (137-145); Total Protein 7.2 g/dL (6.3-8.2); Triglycerides 96 mg/dL (<150)
[2019-12-29] MEDS: METOPROLOL TARTRATE 12.5 MG TAB PO SCH (09:44)
[2019-12-29] MEDS: FOLIC ACID 1 MG TAB PO SCH (09:44)
[2019-12-29] MEDS: THIAMINE 100 MG TAB PO SCH (09:44)
--- NOTE | 2019-12-29 11:25 | ECHOF ---
Referral Reason:cardimyopathy MEASUREMENTS -------- HEIGHT: 172.7 cm WEIGHT: 83.5 kg BP: 139/103 RVIDd: 2.7 cm (< 3.3) IVSd: 1.1 cm (0.6 - 1.1) LVIDd: 3.7 cm (3.9 - 5.3) LVPWd: 1.5 cm (0.6 - 1.1) IVSs: 1.5 cm LVIDs: 2.6 cm LVPWs: 1.9 cm LAESV Index (A-L): 23.30 ml/m Ao Diam: 2.5 cm (2.0 - 3.7) AV Cusp: 1.8 cm (1.5 - 2.6) LA Diam: 3.8 cm (2.7 - 3.8) MV EXCURSION: 14.230 mm (> 18.000) MV EF SLOPE: 61 mm/s (70 - 150) EPSS: 0.6 cm MV E Wilbert: 0.63 m/s MV DecT: 167 ms MV A Wilbert: 0.74 m/s MV E/A Ratio: 0.85 RAP: 5.00 mmHg RVSP: 20.32 mmHg TAPSE: 26.18 mm FINDINGS -------- Sinus rhythm. This was a technically good study. The left ventricular size is normal. Left ventricular wall thickness is normal. Overall left vent ricular systolic function is normal with, an EF between 55 - 60 %. The diastolic filling pattern is normal for the age of the patient 7.54. The right ventricle is normal in size. The right ventricular systolic function is normal. The left atrial size is normal. Normal LA size by volume 22+/-6 ml/m2. The right atrial size is normal. The aortic valve is trileaflet and appears structurally normal. The mitral valve is normal. There is trace mitral regurgitation. The tricuspid valve appears structurally normal. Trace tricuspid regurgitation present. Right tania tricular systolic pressure is normal at < 35 mmHg. There is no pulmonic regurgitation present. The aortic root size is normal. IVC Not well visulized. There is no pericardial effusion. CONCLUSIONS -------- 1. Sinus rhythm. 2. This was a technically good study. 3. The left ventricular size is normal. 4. Left ventricular wall thickness is normal. 5. Overall left ventricular systolic function is normal with, an EF between 55 - 60 %. 6. The diastolic filling pattern is normal for the age of the patient 7.54 7. The right ventricle is normal in size. 8. The right ventricular systolic function is normal. 9. The left atrial size is normal. 10. Normal LA size by volume 22+/-6 ml/m2. 11. The right atrial size is normal. 12. The aortic valve is trileaflet and appears structurally normal. 13. The mitral valve is normal. 14. There is trace mitral regurgitation. 15. The tricuspid valve appears structurally normal. 16. Trace tricuspid regurgitation present. 17. Right ventricular systolic pressure is normal at < 35 mmHg. 18. There is no pulmonic regurgitation present. 19. The aortic root size is normal. 20. IVC Not well visulized. 21. There is no pericardial effusion. FELT PULLER: Amarilys García RDCS
[2019-12-29 11:26] VITALS: BMI 28.0
[2019-12-29 11:53] VITALS: RESP 18
[2019-12-29 16:17] LABS: Alpha Fetoprotein, Tumor Mkr 10.7 ng/mL (0.0-7.9)
[2019-12-29 17:14] LABS: Ferritin 641.1 ng/mL (22.0-322.0)
--- NOTE | 2019-12-29 17:26 | P.PN ---
Subjective Progress Note Date: 12/29/19 (delayed charting seen at 1030) Principal diagnosis: epigastric pain Patient is a 34 yo CM with a hx of high blood pressure, alcohol misuse, and recent marijuana use who presented to the emergency department with complaints of chest pain, which on questioning as well as epigastric pain. In the ER he underwent extensive evaluation. He was tachycardic and hypertensive on arrival. Initial laboratory analysis showed transaminitis, coagulopathy, low platelets, macrocytosis, and elevated bilirubin. Urinalysis showed elevated bilirubin and concentrated urine. He underwent an EKG which is nonischemic. He had chest x- ray shows no acute process. Ultrasound showed hepatomegaly with hepatic steatosis or diffuse hepatocellular disease. Thoracic aortic CTA showed no aortic aneurysm or dissection and diffuse fatty infiltration of the liver. In the emergency department he was given a dose of hydralazine for his hypertension. He was found have magnesium of 1.4 and was provided with magnesium replacement. He was provided with morphine for pain control. He was admitted for further management of his acute transaminitis with possible liver failure. It was felt his liver failure is likely from alcohol use. Hepatitis profile negative. The morning after admission his epigastric pain had improved. His liver enzymes were improving. Patient seen and examined at bedside. He reports he is feeling better than yesterday. Less shaking. No nausea or vomiting. Less pain. Anxious to go home in a long discussion about needing to abstain from alcohol. Currently awaiting GI evaluation. Objective - Vital Signs Vital signs: Vital Signs Temp 98.5 F 12/29/19 11:40 Pulse 89 12/29/19 11:40 Resp 18 12/29/19 11:40 BP 158/106 12/29/19 11:40 Pulse Ox 98 12/29/19 11:40 Intake & Output 12/28/19 12/29/19 12/29/19 18:59 06:59 18:59 Intake Total 636 483 7880 Balance 090 905 6565 Weight 81.647 kg 83.8 kg 83.8 kg Intake: Oral [phone] Other: Voiding Method Toilet Toilet # Voids 3 - Exam General: Nontoxic, no distress, appears at stated age Derm: warm, dry Head: atraumatic, normocephalic, symmetric Eyes: EOMI, no lid lag, anicteric sclera Mouth: no lip lesion, mucus membranes moist Cardiovascular: S1S2 reg, no murmur, positive posterior tibial pulse bilateral, Lungs: CTA bilateral, no rhonchi, no rales , no accessory muscle use Abdominal: soft, + tender to palpation, louann umbilical, no guarding, no appreciable organomegaly Ext: no gross muscle atrophy, no edema, no contractures Neuro: CN II-XI grossly intact, no focal neuro deficits Psych: Alert, oriented, appropriate affect - Labs CBC & Chem 7: 12/29/19 06:01 12/29/19 06:01 Labs: Abnormal Lab Results - Last 24 Hours (Table) 12/28/19 12/29/19 12/29/19 Range/Units 22:02 06:01 06:01 RBC 4.13 L (4.30-5.90) m/uL MCV 105.5 H (80.0-100.0) fL Plt Count 122 L (150-450) k/uL PT 12.2 H (9.0-12.0) sec INR 1.2 H (<1.2) Sodium (137-145) mmol/L Creatinine (0.66-1.25) mg/dL Calcium (8.4-10.2) mg/dL Total Bilirubin (0.2-1.3) mg/dL AST (17-59) U/L ALT (4-49) U/L LDL Cholesterol, Calc (0-99) mg/dL HDL Cholesterol (40-60) mg/dL Tumor Marker AFP 10.7 H (0.0-7.9) ng/mL 12/29/19 Range/Units 06:01 RBC (4.30-5.90) m/uL MCV (80.0-100.0) fL Plt Count (150-450) k/uL PT (9.0-12.0) sec INR (<1.2) Sodium 136 L (137-145) mmol/L Creatinine 0.60 L (0.66-1.25) mg/dL Calcium 8.3 L (8.4-10.2) mg/dL Total Bilirubin 2.0 H (0.2-1.3) mg/dL AST 232 H (17-59) U/L ALT 61 H (4-49) U/L LDL Cholesterol, Calc 101 H (0-99) mg/dL HDL Cholesterol 31 L (40-60) mg/dL Tumor Marker AFP (0.0-7.9) ng/mL Assessment and Plan Assessment: Epigastric pain - suspect GERD/PUD - PPI BID - await GI consult, consider EGD to rule out PUD vs esophageal dysfunction as inpatient vs outpatient - echo normal - Heart score: 1 - Trend troponins - tele - ASA stopped with possible GERD Acute transaminitis with underlying steato hepatitis - increased ETOH use - Await acute hep panel negative - Ammonia normal - Await GI recs - Await ANETTE, mitochondrial, (recently worked up for polycythemia and was told he did not have this), ceruloplasmin, anti liver/kidney - AFP mildly elevated - Ferritin elevated, if transferrin elevated then consult Heme/onc and proceed with HFE testing Coagulopathy with thrombocytopenia and macrocytosis - suspect related to underlying liver disease - repeat INR improving - follow CBC HTN urgency - s/p labetalol in the ED - increase metoprolol - follow Bp Alcohol misuse - CIWA - thiamine - folic acid - had a binge this last weekend with friends - social work consult Multiple + UDS - Patient denies and doesn't know how they got in his systme Hypomagnesemia, resolved DVT prophylaxis: scds Discussed with: patient, nursing, Germain Anticipated discharge date: 1-[address]: home A total of 35 minutes was spent on the care of this complex patient more than 50% of the time was spent in counseling and care coordination.
[2019-12-29] MEDS: METOPROLOL TARTRATE 25 MG TAB PO SCH (20:14)
[2019-12-30 06:06] LABS: HCT 44.3 % (39.0-53.0); HGB 14.6 gm/dL (13.0-17.5); MCH 34.7 pg (25.0-35.0); MCHC 32.9 g/dL (31.0-37.0); MCV 105.5 fL (80.0-100.0); Macrocytosis Slight; Platelet Count 119 k/uL (150-450); RDW 12.4 % (11.5-15.5); WBC 7.9 k/uL (3.8-10.6)
[2019-12-30 06:15] LABS: ALT 63 U/L (4-49); AST 218 U/L (17-59); African American GFR (CKD) >90 (>60 ml/min/1.73 sqM); Albumin 4.1 g/dL (3.5-5.0); Alkaline Phosphatase 116 U/L (38-126); Anion Gap 9 mmol/L; Blood Urea Nitrogen 7 mg/dL (9-20); Calcium 8.8 mg/dL (8.4-10.2); Carbon Dioxide 25 mmol/L (22-30); Chloride 102 mmol/L (98-107); Glucose 84 mg/dL (74-99); Non-African American GFR(CKD) >90 (>60 ml/min/1.73 sqM); Potassium 4.4 mmol/L (3.5-5.1); Sodium 136 mmol/L (137-145); Total Bilirubin 1.5 mg/dL (0.2-1.3); Total Protein 7.8 g/dL (6.3-8.2)
[2019-12-30 06:18] LABS: INR 1.2 (<1.2); Prothrombin Time 12.5 sec (9.0-12.0)
[2019-12-30] MEDS: PANTOPRAZOLE 40 MG TABLET PO SCH (06:21)
--- NOTE | 2019-12-30 06:42 | P.CONS ---
History of Present Illness - Reason for Consult Consult date: 12/29/19 Chest and epigastric pain Requesting physician: Alison Ortega - Chief Complaint Chest pain - History of Present Illness 34-year-old male with a medical history significant for high blood pressure, alcohol misuse, and marijuana use who presented to the hospital due to co mplaints of chest pain and epigastric pain. The patient underwent laboratory evaluation with a negative cardiac evaluation. In addition he also reports previously being seen by a manager interface 1 year ago with a negative stress test at that time. He denies any excessive NSAID use reporting aspirin 2-3 times per week. He does drink 5-6 alcoholic beverages daily. He reports sharp chest and epigastric pain on presentation. Pain was constant and intense in nature. Patient does report a history of GERD and has been having intermittent nausea and vomiting. He denies any prior EGD or colonoscopy. Patient had laboratory evaluation on presentation significant for WBC 6.2, hemoglobin 14.1, platelet count 122,000, total bilirubin 2, alkaline phosphatase 126, AST 232 and ALT 61. Ultrasound of the abdomen showed hepatomegaly and steatosis. Acute viral hepatitis panel testing was negative. Review of Systems REVIEW OF SYSTEMS: CONSTITUTIONAL: Denies any fevers, chills, weight change or fatigue. CARDIOVASCULAR: Denies any palpitations high or low blood pressures, but did reports chest pain on presentation. RESPIRATORY: Denies any shortness of breath, hemoptysis or cough. GENITOURINARY: No dysuria or hematuria. MUSCULOSKELETAL: No weakness reported. SKIN: Denies any new rashes or lesions, jaundice or pallor. PSYCHIATRIC: Denies any depression or anxiety. NEUROLOGY: Denies headache, denies any new focal deficits. EARS/NOSE/THROAT: No recent hearing change, congestion, nasal discharge or sore throat. EYES: No pain in eyes, discharge or change in vision. GASTROINTESTINAL: As per HPI. Past Medical History Past Medical History: Hypertension Additional Past Medical History / Comment(s): polycythemia kojo ruled out History of Any Multi-Drug Resistant Organisms: None Reported Past Surgical History: No Surgical Hx Reported Past Anesthesia/Blood Transfusion Reactions: No Reported Reaction Past Psychological History: No Psychological Hx Reported Smoking Status: Never smoker Additional Past Alcohol Use History / Comment(s): 4-5 days a week with 3-5 truelys - Past Family History Mother Family Medical History: Hypertension grandfather Additional Family Medical History / Comment(s): lung cancer Medications and Allergies Home Medications Medication Instructions Recorded Confirmed Type Losartan [Cozaar] 25 mg PO DAILY 09/13/19 12/28/19 History Aspirin EC [Ecotrin Low Dose] 81 mg PO DAILY 12/28/19 12/28/19 History Potassium Citrate [Urocit-K] 5 meq PO DAILY 12/28/19 12/28/19 History Allergies Allergy/AdvReac Type Severity Reaction Status Date / Time No Known Allergies Allergy Verified 12/28/19 11:05 Physical Exam Vitals: Vital Signs Temp Pulse Pulse Resp BP BP BP 12/29/19 11:40 98.5 F 89 18 154/105 158/106 12/29/19 09:15 98.7 F 89 18 130/90 12/29/19 03:54 97.1 F L 94 14 139/103 12/29/19 00:36 93 19 143/98 12/29/19 00:00 98.6 F 96 14 125/89 12/28/19 20:00 98.6 F 100 15 127/74 12/28/19 16:55 98.7 F 128 H 18 133/92 12/28/19 16:25 98.4 F 98 18 136/79 12/28/19 15:36 18 141/96 Pulse Ox 12/29/19 11:40 98 12/29/19 09:15 98 12/29/19 03:54 99 12/29/19 00:36 97 12/29/19 00:00 97 12/28/19 20:00 96 12/28/19 16:55 93 L 12/28/19 16:25 100 12/28/19 15:36 Intake and Output 12/29/19 12/29/19 12/29/19 06:59 14:59 22:59 Intake Total 460 Balance 460 Intake: Oral 460 Other: Voiding Method Toilet Toilet Weight 83.8 kg 83.8 kg On physical examination, patient appears comfortable in no apparent distress. HEAD: Normocephalic, atraumatic. EYES: No scleral icterus. No conjunctival injection. MOUTH: No lesions, tongue midline. NECK: Trachea midline, no gross abnormalities. CHEST: Clear to auscultation with no wheezing or rhonchi appreciated. HEART: Regular rate and rhythm. ABDOMEN: Soft, obese. Bowel sounds are positive. No organomegaly. No guarding or rigidity. EXTREMITIES: No pedal edema. SKIN: No rashes, no jaundice. NEUROLOGIC: Alert and oriented x3. No focal deficits. Results CBC & Chem 7: 12/30/19 05:48 12/30/19 05:48 Labs: Abnormal Lab Results - Last 24 Hours (Table) 12/28/19 12/29/19 12/29/19 Range/Units 15:02 06:01 06:01 RBC 4.13 L (4.30-5.90) m/uL MCV 105.5 H (80.0-100.0) fL Plt Count 122 L (150-450) k/uL PT 12.2 H (9.0-12.0) sec INR 1.2 H (<1.2) Sodium (137-145) mmol/L Creatinine (0.66-1.25) mg/dL Calcium (8.4-10.2) mg/dL Total Bilirubin (0.2-1.3) mg/dL AST (17-59) U/L ALT (4-49) U/L Ammonia 32 H (<30) umol/L LDL Cholesterol, Calc (0-99) mg/dL HDL Cholesterol (40-60) mg/dL 12/29/19 Range/Units 06:01 RBC (4.30-5.90) m/uL MCV (80.0-100.0) fL Plt Count (150-450) k/uL PT (9.0-12.0) sec INR (<1.2) Sodium 136 L (137-145) mmol/L Creatinine 0.60 L (0.66-1.25) mg/dL Calcium 8.3 L (8.4-10.2) mg/dL Total Bilirubin 2.0 H (0.2-1.3) mg/dL AST 232 H (17-59) U/L ALT 61 H (4-49) U/L Ammonia (<30) umol/L LDL Cholesterol, Calc 101 H (0-99) mg/dL HDL Cholesterol 31 L (40-60) mg/dL US - abdomen: report reviewed (Ultrasound of the abdomen with findings of s teatosis and hepatomegaly.) Assessment and Plan (1) Epigastric abdominal pain Narrative/Plan: 34-year-old presenting with chest and epigastric abdominal pain. He reports uncontrolled GERD and intermittent nausea and vomiting. No signs or symptoms of GI bleeding. He does take aspirin to 3 times per week. Unknown etiology may be related to esophagitis, gastritis, uncontrolled GERD, functional bowel disorder, peptic ulcer disease or other etiology. Current Visit: Yes Status: Acute Code(s): R10.13 - EPIGASTRIC PAIN SNOMED Code(s): 67238537 (2) Elevated liver enzymes Narrative/Plan: Elevated liver enzymes predominantly in a hepatocellular pattern consistent with the patient's daily use of alcohol with ultrasound of the abdomen showed hepatomegaly and fatty infiltration in the liver. Suspicion is for fatty liver related to both alcohol use as well as metabolic syndrome. Current Visit: Yes Status: Acute Code(s): R74.8 - ABNORMAL LEVELS OF OTHER SERUM ENZYMES SNOMED Code(s): 040643351 Plan: Supportive care Okay for diet Nothing by mouth after midnight Continue PPI therapy Alcohol counseling given Plan for EGD for further evaluation tomorrow Viral hepatitis panel testing was negative Thank you for allowing us to participate in the care of the patient we will follow
[2019-12-30 10:47] LABS: % Iron Saturation 17.16 (15.00-50.00); Iron 52 ug/dL (65-175); Total Iron Binding Capacity 303 ug/dL (228-460)
[2019-12-30] MEDS: FOLIC ACID 1 MG TAB PO SCH (11:05)
[2019-12-30] MEDS: METOPROLOL TARTRATE 25 MG TAB PO SCH (11:05)
[2019-12-30] MEDS: THIAMINE 100 MG TAB PO SCH (11:06)
[2019-12-30 12:43] LABS: Ceruloplasmin 20.3 mg/dL (20.0-60.0)
[2019-12-30] MEDS ORDERED: LIDOCAINE 1% INJ 10MG/ML (20 ML MDV) ONE (14:13)
[2019-12-30] MEDS ORDERED: PROPOFOL 10 MG/ML 20 ML VIAL IV ONE (14:13)
[2019-12-30] MEDS ORDERED: LACTATED RINGERS 1,000 ML IV ONE (14:33)
[2019-12-30 14:38] LABS: Liver/Kidney Microsome Antibod 1.6 UNITS (<=20)
--- NOTE | 2019-12-30 14:43 | P.PCN ---
Date of Procedure: 12/30/19 Description of Procedure: BRIEF HISTORY: 34-year-old male with a medical history significant for high blood pressure, alcohol misuse, and marijuana use who presented to the hospital due to complaints of chest pain and epigastric pain. The patient underwent laboratory evaluation with a negative cardiac evaluation. In addition he also reports previously being seen by a bronze plater 1 year ago with a negative stress test at that time. He denies any excessive NSAID use reporting aspirin 2-3 times per week. He does drink 5-6 alcoholic beverages daily. He reports sharp chest and epigastric pain on presentation. Pain was constant and intense in nature. Patient does report a history of GERD and has been having intermittent nausea and vomiting. He denies any prior EGD or colonoscopy. Patient had laboratory evaluation on presentation significant for WBC 6.2, hemoglobin 14.1, platelet count 122,000, total bilirubin 2, alkaline phosphatase 126, AST 232 and ALT 61. Ultrasound of the abdomen showed hepatomegaly and steatosis. Acute viral hepatitis panel testing was negative. PROCEDURE PERFORMED: Esophagogastroduodenoscopy with biopsy. PREOPERATIVE DIAGNOSIS: Epigastric abdominal pain. ESTIMATED BLOOD LOSS: Minimal. IV sedation per anesthesia. PROCEDURE: After informed consent was obtained, the patient was brought into the endoscopy unit. IV sedation was administered by Anesthesia under continuous monitoring. Initially the Olympus GIF-190 video endoscope was inserted into the mouth. Esophagus intubated without any difficulty. It was gradually advanced into the stomach and duodenum and carefully examined. The bulb and the second part of the duodenum appeared normal, with biopsies taken. The scope at this time was withdrawn to the stomach, adequately insufflated with air, and upon careful examination, mucosa of the antrum, body, cardia and the fundus appeared grossly normal there were however 2 non-bleeding subcentimeter antral ulcers without high risk stigmata for bleeding which were noted and biopsied. Mild gastritis in antrum and body was also seen and biopsied. The scope was then withdrawn into the esophagus. The GE junction was located at 39 cm from the incisors. The esophagus appeared normal. There were no erosions or ulcerations seen and the patient tolerated the procedure well. IMPRESSION: 1. Two nonbleeding antral ulcers without high risk stigmata, biopsied. 2. Mild gastritis antrum body, biopsied. 3. Duodenal biopsies. RECOMMENDATIONS: The findings of this examination were discussed with the patient. Okay to resume diet. Okay for discharge. Avoid NSAID use. The patient should remain on Protonix 40 mg twice daily.
[2019-12-30 15:06] VITALS: BP 135/60; PULSE 94; TEMP 97.7
--- NOTE | 2019-12-30 15:36 | P.DS ---
Providers Date of admission: 12/28/19 14:29 Expected date of discharge: 12/30/19 Attending physician: Alison Ortega DO Consults: 12/28/19 14:10 Consult Physician Stat Consulting Provider: River Howard Reason/Comments: liver failure Do you want consulting provider notified?: Yes, Notify in am Primary care physician: Stated None Hospital Course: Discharge Diagnosis: Transaminitis due to acute alcoholic hepatitis steatohepatitis Gastric ulcers Elevated Ferritin Coagulopathy Thromobocytopenia Macrocytosis HTN urgency ETOH misuse with Binge drinking pattern Hypomagnesemia Hospital Course: Patient is a 34 yo CM with a hx of high blood pressure, alcohol misuse, and recent marijuana use who presented to the emergency department with complaints of chest pain, which on questioning as well as epigastric pain. In the ER he underwent extensive evaluation. He was tachycardic and hypertensive on arrival. Initial laboratory analysis showed transaminitis, coagulopathy, low platelets, macrocytosis, and elevated bilirubin. Urinalysis showed elevated bilirubin and concentrated urine. He underwent an EKG which is nonischemic. He had chest x- ray shows no acute process. Ultrasound showed hepatomegaly with hepatic steatosis or diffuse hepatocellular disease. Thoracic aortic CTA showed no aortic aneurysm or dissection and diffuse fatty infiltration of the liver. In the emergency department he was given a dose of hydralazine for his hypertension. He was found have magnesium of 1.4 and was provided with magnesium replacement. He was provided with morphine for pain control. He was admitted for further management of his acute transaminitis with possible liver failure. It was felt his liver failure is likely from alcohol use. Hepatitis profile negative. The morning after admission his epigastric pain had improved. His liver enzymes were improving. His creatinine did come back elevated at 644 however his transferrin was normal. His liver enzymes continued to improve. He underwent an EGD which showed 2 gastric antral ulcers without high risk stigmata and mild gastritis. We had several discussions about the importance of not drinking after discharge secondary to his liver disease. He he is aware of the importance of this possible reaction to cirrhosis. He also had hypertensive urgency during this admission and was started on metoprolol which improved his BP. He'll follow up with GI in 2-3 weeks. He is going to establish with Dr. West for his primary care physician. No NSAIDS (motrin, aspirin, aleve, advil, naproxen, ibuprofen) Abstain from alcohol Patient seen and examined at bedside.No chest pain, shortness of breath, belly pain improved, no nausea, no diarrhea. Vital signs reviewed and stable. General: non toxic, no distress, appears at stated age Derm: warm, dry Head: atraumatic, normocephalic, symmetric Eyes: EOMI, no lid lag, anicteric sclera Mouth: no lip lesion, mucus membranes moist Cardiovascular: S1S2 reg, no murmur, positive posterior tibial pulse bilateral, Lungs: CTA bilateral, no rhonchi, no rales , no accessory muscle use Abdominal: soft, + tender to palpation epigastric, no guarding, no appreciable organomegaly Ext: no gross muscle atrophy, no edema, no contractures Neuro: CN II-XI grossly intact, no focal neuro deficits Psych: Alert, oriented, appropriate affect A total of 35 minutes of time were spent preparing this complex discharge summary . Patient Condition at Discharge: Stable Plan - Discharge Summary New Discharge Prescriptions: New Metoprolol Tartrate [Lopressor] 25 mg PO BID #60 tab Pantoprazole [Protonix] 40 mg PO AC-BID #60 tablet.dr Discontinued Losartan [Cozaar] 25 mg PO DAILY Potassium Citrate [Urocit-K] 5 meq PO DAILY Aspirin EC [Ecotrin Low Dose] 81 mg PO DAILY Discharge Medication List Metoprolol Tartrate [Lopressor] 25 mg PO BID #60 tab 12/30/19 [Rx] Pantoprazole [Protonix] 40 mg PO AC-BID #60 tablet. 12/30/19 [Rx] Follow up Appointment(s)/Referral(s): Guillermo West [STAFF PHYSICIAN] - 3 Days (Office closed for the , please call on Thursday to schedule a follow up appointment. Please have your insurance card ready when you call.) River Howard MD [STAFF PHYSICIAN] - 01/20/20 9:45 am (Gastroenterology: With Maria G Sanabria NP. Please bring photo ID, insurance card and a list of current medications to follow up appointment. ) Patient Instructions/Handouts: *Surgery [facility] - (Anesthesia) Endoscopy Discharge Instructions, Acute Liver Failure (DC), Diet for Stomach Ulcers and Gastritis (ED), Abuse of Alcohol (DC) Activity/Diet/Wound Care/Special Instructions: Special Instructions: No NSAIDS (motrin, aspirin, aleve, advil, naproxen, ibuprofen) Abstain from alcohol When Dr. Howard (GI) states it is okay resume Aspirin 81 mg daily enteric coated. Discharge Disposition: HOME SELF-CARE
== END 2019-12-30 16:19 | disposition home or self-care (01) | DRG 432 ==
LOC: EC 09:45 → 3SCARD 14:29
PROVIDERS: ADMIT Internal Medicine; ATTEND Internal Medicine
PROC: 0DB78ZX Excision of Stomach, Pylorus, Via Natural or Artificial Opening Endoscopic, Diagnostic (ICD-10-PCS; 2019-12-30)
PROC: 0DB98ZX Excision of Duodenum, Via Natural or Artificial Opening Endoscopic, Diagnostic (ICD-10-PCS; principal; 2019-12-30 08:25)
DX: K70.10 Alcoholic hepatitis without ascites (principal); K25.4 Chronic or unspecified gastric ulcer with hemorrhage; K72.00 Acute and subacute hepatic failure without coma; D68.9 Coagulation defect, unspecified; F10.10 Alcohol abuse, uncomplicated; D69.59 Other secondary thrombocytopenia; D75.89 Other specified diseases of blood and blood-forming organs; E83.42 Hypomagnesemia; R74.0 Nonspecific elevation of levels of transaminase and lactic acid dehydrogenase [LDH]; F17.210 Nicotine dependence, cigarettes, uncomplicated; I10 Essential (primary) hypertension; I16.0 Hypertensive urgency; K21.9 Gastro-esophageal reflux disease without esophagitis; K29.70 Gastritis, unspecified, without bleeding; Z79.82 Long term (current) use of aspirin; Z79.899 Other long term (current) drug therapy; Z80.1 Family history of malignant neoplasm of trachea, bronchus and lung; Z82.49 Family history of ischemic heart disease and other diseases of the circulatory system; T46.6X6A Underdosing of antihyperlipidemic and antiarteriosclerotic drugs, initial encounter; Z91.128 Patient's intentional underdosing of medication regimen for other reason; E88.81 Metabolic syndrome and other insulin resistance
CPT/HCPCS: 36415; 43239; 71046; 71275; 74174; 76705; 80053; 80061; 80074; 80306; 80320; 80329; 81001; 82103; 82105; 82140; 82390; 82728; 83516; 83520; 83540; 83550; 83690; 83735; 84484; 85025; 85027; 85610; 85730; 86308; 86376; 88305; 93005; 93306; 96361; 96365; 96372; 96375; 99285

== ENCOUNTER → 2023-10-29 | Outpatient (CLI) | payer OTHER ==
--- NOTE | 2023-10-29 12:22 | XR ---
EXAMINATION TYPE: XR shoulder complete LT DATE OF EXAM: 10/29/2023 10:34 AM CLINICAL INDICATION:Male, 38 years old with history of M25.512 pain L shoulder; [facility] COMPARISON: None TECHNIQUE: XR shoulder complete LT; shoulder was examined in AP, internally rotated and scapular Y p rojections. FINDINGS: No evidence of acute osseous pathology, joint dislocation, or soft tissue swelling. The remaining po rtions of the visualized chest are unremarkable. IMPRESSION: No acute osseous pathology.
--- NOTE | 2023-10-29 12:27 | XR ---
EXAMINATION TYPE: XR cervical spine comp DATE OF EXAM: 10/29/2023 10:34 AM CLINICAL INDICATION:Male, 38 years old with history of R52 pain; [facility] COMPARISON: None TECHNIQUE: The cervical spine was imaged in frontal, lateral, odontoid and bilateral oblique. FINDINGS: The osseous structures show normal alignment without evidence of an acute fracture. There are osteoph ytes noted throughout the cervical spine on the anterior and lateral aspects of the vertebral bodies. The intervertebral disk spaces are narrowed at multiple levels. Pedicles are intact. Soft tissues a re within normal limits. The odontoid appears intact. IMPRESSION: 1. No fracture or dislocation. 2. Moderate degenerative disc disease changes of the cervical spine.
== END | disposition home or self-care (01) ==
LOC: RADXRMAIN 09:29
PROVIDERS: ATTEND Family Medicine
DX: M25.512 Pain in left shoulder (principal); M50.30 Other cervical disc degeneration, unspecified cervical region
CPT/HCPCS: 72050